=== PATIENT | male | born 1970 | race Caucasian/White ===

== ENCOUNTER 2017-02-09 19:05 | Emergency (ER) | payer OTHER ==
[~2017-02-09] VITALS: Ht 182.9 cm; Wt 116.8 kg
[2017-02-09] MEDS ORDERED: NORCO 5/3251 TABLET PO (21:00)
[2017-02-09] MEDS ORDERED: KEFLEX500 MG PO (21:00)
[2017-02-09 21:14] VITALS: BP 136/97
== END 2017-02-09 21:14 | disposition home or self-care (01) ==
LOC: EME 19:05
DX: S61.245A Puncture wound with foreign body of left ring finger without damage to nail, initial encounter (principal); S61.247A Puncture wound with foreign body of left little finger without damage to nail, initial encounter; W29.4XXA Contact with nail gun, initial encounter; Z86.718 Personal history of other venous thrombosis and embolism
CPT/HCPCS: 73130; 99281; 99284; S0020